=== PATIENT | female | born 1975 | race Two or more races ===

== ENCOUNTER 2018-09-23 11:18 | Emergency (ER) | payer OTHER ==
[~2018-09-23] VITALS: Ht 160 cm; Wt 68.9 kg
[~2018-09-23 11:18] MED LIST: PROBIOTIC & AC1 EACH PO
== END 2018-09-23 15:14 | disposition home or self-care (01) ==
LOC: ER 11:18
DX: R53.81 Other malaise (principal); B34.9 Viral infection, unspecified

== ENCOUNTER → 2019-03-15 | Emergency (ER) | payer OTHER ==
[~2019-03-15] VITALS: Ht 160 cm; Wt 77.1 kg
[~2019-03-15] MED LIST changes: +TRISPEC PSE LI118 ML PO
== END | disposition home or self-care (01) ==
LOC: ER 19:05
DX: J06.9 Acute upper respiratory infection, unspecified (principal)

== ENCOUNTER 2019-09-24 19:44 | Emergency (ER) | payer OTHER ==
[~2019-09-24] VITALS: Ht 160 cm; Wt 74.8 kg
== END 2019-09-24 22:47 | disposition home or self-care (01) ==
LOC: ER 19:44
DX: J06.9 Acute upper respiratory infection, unspecified (principal)

== ENCOUNTER 2019-09-30 11:11 | Emergency (ER) | payer OTHER ==
[~2019-09-30] VITALS: Ht 160 cm; Wt 73.0 kg
== END 2019-09-30 18:33 | disposition home or self-care (01) ==
LOC: ER 11:11
DX: J06.9 Acute upper respiratory infection, unspecified (principal)

== ENCOUNTER 2020-11-01 11:48 | Emergency (ER) | payer OTHER ==
[~2020-11-01] VITALS: Ht 162.6 cm; Wt 68.0 kg
[2020-11-01] MEDS ORDERED: CLARITIN-D 121 EACH PO (16:25)
[2020-11-01] MEDS ORDERED: ZITHROMAX TRI-500 MG PO (16:25)
== END 2020-11-01 16:29 | disposition home or self-care (01) ==
LOC: ER 11:48
DX: J06.9 Acute upper respiratory infection, unspecified (principal); Z20.822 Contact with and (suspected) exposure to COVID-19

== ENCOUNTER 2022-05-09 17:44 | Emergency (ER) | payer OTHER ==
[~2022-05-09] VITALS: Ht 160 cm; Wt 78.0 kg
[~2022-05-09 17:44] MED LIST changes: +CLARITIN-D 121 EACH PO; +ZITHROMAX TRI-500 MG PO
[2022-05-09] MEDS ORDERED: CELEBREX200MG PO (20:24)
[2022-05-09] MEDS ORDERED: ZITHROMAX500 MG PO (20:24)
== END 2022-05-09 20:44 | disposition home or self-care (01) ==
LOC: ER 17:44
DX: M72.2 Plantar fascial fibromatosis (principal)

== ENCOUNTER 2024-06-19 13:19 | Emergency (ER) | payer OTHER ==
[~2024-06-19] VITALS: Ht 160 cm; Wt 76.2 kg
[~2024-06-19 13:19] MED LIST changes: +CELEBREX200MG PO; +DIALYVITE TABL1 EACH PO; +FERROCITE324 MG PO; +MEGESTROL ACETA40 MG PO; +ZITHROMAX500 MG PO
== END 2024-06-19 17:34 | disposition home or self-care (01) ==
LOC: ER 13:21
DX: J06.9 Acute upper respiratory infection, unspecified (principal)

== ENCOUNTER 2024-11-15 16:30 | Emergency (ER) | payer OTHER ==
[~2024-11-15] VITALS: Ht 160 cm; Wt 76.2 kg
[2024-11-15 16:42] VITALS: BP 112/62; O2SAT 97
== END 2024-11-15 18:58 | disposition home or self-care (01) ==
LOC: ER 16:32
DX: R53.81 Other malaise (principal); J10.1 Influenza due to other identified influenza virus with other respiratory manifestations; Z20.822 Contact with and (suspected) exposure to COVID-19